=== PATIENT | female | born 1995 | race Caucasian/White ===

== ENCOUNTER 2017-08-24 10:03 | Emergency (ER) | payer OTHER, BC, SELFPAY ==
[2017-08-24 10:29] VITALS: BP 136/70; PULSE 84; RESP 20; TEMP 36.7; O2SAT 96; BMI 31.0
--- NOTE | 2017-08-24 10:32 | HMH.EDUTC ---
[facility] [place] Disposition Clinical Impression: UTI (urinary tract infection) Qualifiers: Urinary tract infection type: site unspecified Hematuria presence: without hematuria Qualified Code(s): N39.0 - Urinary tract infection, site not specified Disposition: Home, Self-Care Condition on Discharge: Good Instructions: DI for Acute Abdomen Additional Instructions: Increase fluids, antibiotics as ordered Call back on Saturday for urine culture results Follow-up with primary care this week if no improvement If symptoms worsen or do not improve return or be seen in the ER Prescriptions: cephALEXin [Keflex 500mg Cap] 500 mg PO BID 7 Days cap Referrals: Daryn Willingham [Primary Care Provider] - Time of Disposition: 10:39 Medical Decision Making Vital Signs: 08/24/17 10:29 Temperature 98.1 F Temperature Source Temporal Artery Scan Pulse Rate [Right Brachial] 84 Respiratory Rate 20 Blood Pressure [Right Arm] 136/70 Blood Pressure Mean [Right Arm] 92 Blood Pressure Source [Right Arm] Automatic Cuff Blood Pressure Position [Right Arm] Sitting 02 Sat by Pulse Oximetry 96 Oxygen Delivery Method Room Air Orders (Tests/Meds): ORDERS Category Date Time Status Urine Culture Stat Micro 08/24/17 10:30 Ordered - Bautista Inquiry Pt receiving controlled substance: No [facility] [place] HPI - General Chief complaint: Abdominal Pain Stated complaint: Possible UTI Time Seen by Provider: 08/24/17 10:32 Mode of Arrival: Ambulatory Source of Information: Patient Limitations: No Limitations Description of Symptoms (Recalled from Triage Doc. by RN): POSSIBLE UTI HEENT Symptoms (Recalled from RN notes): No Resp Symptoms (Recalled from RN notes): No Skin Symptoms (Recalled from RN notes): No MS Symptoms (Recalled from RN notes): No Functional Status (Recalled from RN notes): N/A - History of Present Illness Provider Complaint: 22-year-old female presents for burning with urination, low back pain, frequent urination, pain after urination. hx of uti - Related Data Previous Rx's Medication Instructions Recorded cephALEXin [Keflex 500mg Cap] 500 mg PO BID 7 Days cap 08/24/17 Allergies Allergy/AdvReac Type Severity Reaction Status Date / Time No Known Allergies Allergy Verified 08/24/17 10:18 - Worker's Comp Is this a Worker's Comp case?: No [facility] History I have reviewed the patient's past medical history: Yes Medical History: Denies:: Cancer, Diabetes Mellitus Type 1, Diabetes Mellitus Type 2, MRSA Amputation: No - Social History Smoking Status: Never smoker Alcohol Intake: never - Psychiatric History Expresses thoughts of harming self/others: None Suicide Plan Description: No Plan ROS Obtained: Yes All systems reviewed & no additional complaints - Constitutional Constitutional: Reports system reviewed and no additional complaints, except as docu - Eyes Eyes: Reports system reviewed and no additional complaints, except as docu - ENT Ears, Nose, Mouth, and Throat: Reports system reviewed and no additional complaints, except as docu - Cardiovascular Cardiovascular: Reports system reviewed and no additional complaints, except as docu - Respiratory Respiratory: Yes system reviewed and no additional complaints, except as docu - Gastrointestinal Gastrointestingal: Reports: system reviewed and no additional complaints, except as docu - Genitourinary Female Genitourinary: Reports system reviewed and no additional complaints, except as docu, Reports pelvic pain, Reports urinary frequency, Reports urinary hesitancy, Reports urinary urgency - Musculoskeletal Musculoskeletal: Reports system reviewed and no additional complaints, except as docu - Integumentary/Breasts Skin/Breast: Reports system reviewed and no additional complaints, except as docu - Neurologic Neurologic: Reports system reviewed and no additional complaints, except as docu - Endocrine Endocrine: Reports system reviewed and no additiona
--- NOTE | 2017-08-24 10:35 | ED_ITS ---
[facility] [place] Disposition Clinical Impression: UTI (urinary tract infection) Qualifiers: Urinary tract infection type: site unspecified Hematuria presence: without hematuria Qualified Code(s): N39.0 - Urinary tract infection, site not specified Disposition: Home, Self-Care Condition on Discharge: Good Instructions: DI for Acute Abdomen Additional Instructions: Increase fluids, antibiotics as ordered Call back on Saturday for urine culture results Follow-up with primary care this week if no improvement If symptoms worsen or do not improve return or be seen in the ER Prescriptions: cephALEXin [Keflex 500mg Cap] 500 mg PO BID 7 Days cap Referrals: Daryn Willingham [Primary Care Provider] - Time of Disposition: 10:39 Medical Decision Making Vital Signs: 08/24/17 10:29 Temperature 98.1 F Temperature Source Temporal Artery Scan Pulse Rate [Right Brachial] 84 Respiratory Rate 20 Blood Pressure [Right Arm] 136/70 Blood Pressure Mean [Right Arm] 92 Blood Pressure Source [Right Arm] Automatic Cuff Blood Pressure Position [Right Arm] Sitting 02 Sat by Pulse Oximetry 96 Oxygen Delivery Method Room Air Orders (Tests/Meds): ORDERS Category Date Time Status Urine Culture Stat Micro 08/24/17 10:30 Ordered - Bautista Inquiry Pt receiving controlled substance: No [facility] [place] HPI - General Chief complaint: Abdominal Pain Stated complaint: Possible UTI Time Seen by Provider: 08/24/17 10:32 Mode of Arrival: Ambulatory Source of Information: Patient Limitations: No Limitations Description of Symptoms (Recalled from Triage Doc. by RN): POSSIBLE UTI HEENT Symptoms (Recalled from RN notes): No Resp Symptoms (Recalled from RN notes): No Skin Symptoms (Recalled from RN notes): No MS Symptoms (Recalled from RN notes): No Functional Status (Recalled from RN notes): N/A - History of Present Illness Provider Complaint: 22-year-old female presents for burning with urination, low back pain, frequent urination, pain after urination. hx of uti - Related Data Previous Rx's Medication Instructions Recorded cephALEXin [Keflex 500mg Cap] 500 mg PO BID 7 Days cap 08/24/17 Allergies Allergy/AdvReac Type Severity Reaction Status Date / Time No Known Allergies Allergy Verified 08/24/17 10:18 - Worker's Comp Is this a Worker's Comp case?: No [facility] History I have reviewed the patient's past medical history: Yes Medical History: Denies:: Cancer, Diabetes Mellitus Type 1, Diabetes Mellitus Type 2, MRSA Amputation: No - Social History Smoking Status: Never smoker Alcohol Intake: never - Psychiatric History Expresses thoughts of harming self/others: None Suicide Plan Description: No Plan ROS Obtained: Yes All systems reviewed & no additional complaints - Constitutional Constitutional: Reports system reviewed and no additional complaints, except as docu - Eyes Eyes: Reports system reviewed and no additional complaints, except as docu - ENT Ears, Nose, Mouth, and Throat: Reports system reviewed and no additional complaints, except as docu - Cardiovascular Cardiovascular: Reports system reviewed and no additional complaints, except as docu - Respiratory Respiratory: Yes system reviewed and no additional complaints, except as docu - Gastrointestinal Gastrointestin
[2017-08-24 10:44] VITALS: BP 136/70; PULSE 84; RESP 20; TEMP 36.7; O2SAT 96
[2017-08-24 11:15] LABS: Apearance,Urine Clear (Clear); Bilirubin,Urine Negative (Negative); Blood, Urine Negative (Negative); Color,Urine Yellow (Yellow); Glucose,Urine (UA) Negative (Negative); Ketones,Urine Negative (Negative); PH,Urine 7.5 (5.0-8.5); Protein,Urine Negative (Negative); Specific Gravity, Urine 1.015 (1.005-1.030)
[2017-08-24 11:16] LABS: UTC Leukocyte Esterase,Urine 1+ (Negative); UTC Nitrate,Urine Negative (Negative); Urobilinogen,Urine 0.2 EU/dl (0.2)
== END 2017-08-24 10:45 | disposition home or self-care (01) ==
PROVIDERS: Emergency Provider Nurse Practitioner Family; Family Provider Internal Medicine; PCP Internal Medicine
DX: N39.0 Urinary tract infection, site not specified (principal)
CPT/HCPCS: 81003; 87086; 99202

== ENCOUNTER → 2017-09-17 13:35 | Outpatient (CLI) | payer OTHER, BC, SELFPAY ==
--- NOTE | 2017-09-17 14:06 | CA_ITS ---
PROCEDURE: 2-D M-mode and color Doppler study INDICATIONS FOR THE TEST: Chest pain COPD Heart Murmur Tobacco Smoking Palpitations Fatigue Syncope Edema Hypertension Diabetes Mellitus Rheumatic Fever SOB LAURA Obesity Hyperlipidemia Family History HD Additional History BAV PATIENT INFORMATION HEIGHT: 67 WEIGHT:197 GENDER: Female B/P:120/70 2-D/M-MODE INTERPRETATION: 2-D MEASUREMENTS OBSERVED VALUES IN CMS Right Ventricular Dimension (RVDd) 1.6 Interventricular Septum (Thickness)(IVsd) 0.8 Left Ventricular Internal Dimensions(LVIDd) 4.3 Left Ventricular Posterior Wall (Thickness)(LVPWd) 0.9 Aortic Root 2.4 Aortic Cusp Separation 1.5 Left Atrial Dimensions (LAD) 3.1 2D 1. Left atrium is normal size, left ventricle is normal size, there is no concentric left ventricular hypertrophy, visually estimated ejection fraction 55% with no obvious regional wall motion abnormality. 2. The right atrium and right ventricle are normal size and contractility. 3. The aortic valve is bicuspid, there is mild restriction the leaflet mobility, aortic root is normal size. 4. The mitral and tricuspid valve are structurally normal 5. The pulmonic valve is poorly visualized 6. No significant pericardial effusion noted. DOPPLER INTERROGATION: 1. The maximum aortic out flow velocity across the valve is 2.75 m/s resulting in a mean gradient across valve of 15 mmHg, this represents mild aortic stenosis, there is mild aortic insufficiency present. 2. The mitral inflow velocity within normal range, there is no mitral stenosis, there is mild mitral regurgitation, diastolic parameters are within normal range. 3. There is mild tricuspid regurgitation noted, tricuspid regurgitant jet velocity insufficient for calculation of the right ventricular systolic pressure. CONCLUSION: 1. Normal left ventricular size, preserved left ventricular systolic function, visually estimated ejection fraction 55% with no obvious regional wall motion abnormality. Diastolic parameters are within normal range. 2. Bicuspid aortic valve with mild aortic stenosis and mild aortic insufficiency. 3. Mild mitral and tricuspid regurgitation 4. No significant pericardial effusion noted.
== END ==
PROVIDERS: Family Provider Internal Medicine; PCP Internal Medicine; Visit Provider Internal Medicine
DX: R51 Headache (principal); H53.9 Unspecified visual disturbance; I35.0 Nonrheumatic aortic (valve) stenosis; R00.2 Palpitations; Q23.1 Congenital insufficiency of aortic valve
CPT/HCPCS: 93306

== ENCOUNTER → 2017-09-20 13:33 | Outpatient (CLI) | payer OTHER, BC, SELFPAY ==
[2017-09-20 14:15] LABS: Alanine Aminotransferase 19 U/L (12-78); Albumin Level 3.8 gm/dL (3.4-5.0); Alkaline Phosphatase 99 U/L (46-116); Anion Gap 9.6 mEq/L (5-15); Aspartate Amino Transferase 10 U/L (15-37); Bilirubin,Total 0.5 mg/dL (0.2-1.0); Blood Urea Nitrogen 7 mg/dL (7-18); Calcium 8.8 mg/dL (8.5-10.1); Carbon Dioxide 28 mmol/L (21.0-32.0); Chloride 105 mmol/L (98-107); Creatinine,Serum 0.64 mg/dL (0.55-1.02); Estimated Glomerular Filt Rate 116 ml/min (>60); GFR (African American) 140 ML/MIN (>60); Globulin 3.7 gm/dl (1.3-3.2); Glucose 83 mg/dL (74-106); Potassium 3.6 mmoL/L (3.5-5.1); Sodium 139 mmol/L (136-145); Thyroid Stimulating Hormone 3.12 uIU/ml (0.358-3.740); Total Protein,Serum 7.5 gm/dL (6.4-8.2)
[2017-09-20 14:34] LABS: Basophils % 0.3 % (0.1-2.0); Eosinophils % 0.3 % (0.1-12.0); Hematocrit 47.2 % (37.0-47.0); Hemoglobin 15.9 g/dL (12.2-16.2); Lymphocytes # 2.7 K/mm3 (0.7-4.5); Lymphocytes % 27.9 K/mm3 (10-50); Mean Corpuscular HGB Conc 33.7 g/dL (31.8-35.4); Mean Corpuscular Hemoglobin 29.8 pg (27.0-31.2); Mean Corpuscular Volume 88.5 fl (81-99); Monocytes # 0.4 K/mm3 (0.1-1.0); Monocytes % 4.1 % (1.7-9.3); Neutrophils # 6.6 K/mm3 (1.8-7.8); Neutrophils % 67.4 % (37.0-80.0); Platelet Count 272 K/mm3 (142-424); Red Blood Count 5.33 M/mm3 (4.20-5.40); Red Cell Distribution Width 12.3 % (11.5-17.5); White Blood Count 9.7 K/mm3 (4.8-10.8)
[2017-09-21 18:38] LABS: Vitamin B12 277 pg/mL (232-1245); Vitamin D 25 Hydroxy 28.6 ng/mL (30.0-100.0)
== END ==
PROVIDERS: Family Provider Internal Medicine; PCP Internal Medicine; Visit Provider Nurse Practitioner Family
DX: R51 Headache (principal); H53.9 Unspecified visual disturbance; Q23.1 Congenital insufficiency of aortic valve
CPT/HCPCS: 36415; 80053; 82607; 82652; 84443; 85025

== ENCOUNTER → 2017-09-23 08:01 | Outpatient (POV) | payer OTHER, BC, SELFPAY | PROVIDERS: Family Provider Internal Medicine; PCP Internal Medicine; Visit Provider Specialist | DX: R51 Headache (principal); H53.9 Unspecified visual disturbance; Q23.1 Congenital insufficiency of aortic valve | CPT/HCPCS: 95819 ==

== ENCOUNTER → 2017-09-23 09:01 | Outpatient (CLI) | payer OTHER, BC, SELFPAY ==
[2017-09-23 09:03] LABS: Urine Pregnancy, HCG Qual. Negative (Negative)
--- NOTE | 2017-09-23 09:05 | MR_ITS ---
MR head/brain wo/w con HISTORY: Severe headache with blurred vision ITS.REASON: headache ORDERING PHYSICIAN: Tito Vance PATIENT AGE: 22 years COMPARISON: None TECHNIQUE: Standard multiplanar multiecho sequences are performed without and with gadolinium enhancement. FINDINGS: No midline shift, mass effect, intracranial hemorrhage, hydrocephalus, acute infarction, or enhancing lesion is evident. The cerebellopontine angles, cerebellum, and brainstem are unremarkable. Hippocampal gyri have an unremarkable appearance and the temporal horns are symmetric. There is normal tian-white matter differentiation with no obvious white matter lesions. There is some minimal cerebellar tonsillar ectopia on the right of approximately 4 mm of questionable clinical significance. The pituitary, optic chiasm, and corpus callosum have an unremarkable appearance. Left petrous bone having a somewhat multilocular appearance and may be related to inflammatory changes within a pneumatized petrous bone or an incidental cholesterol granuloma. Expected flow void artifact is noted within the carotids and vertebrobasilar system. No large aneurysms are evident. Small aneurysms may not be seen with this technique and may be better evaluated for with MRA clinically warranted. There is a small posterior ethmoid air cell opacification on the right. No mastoid effusion or sinus air-fluid level. IMPRESSION: 1. No acute intracranial abnormality. 2. Inflammatory changes of pneumotomized left petrous bone versus incidental cholesterol granuloma on the left 3. 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
== END ==
PROVIDERS: Family Provider Internal Medicine; PCP Internal Medicine; Visit Provider Nurse Practitioner Family
DX: R51 Headache (principal); H53.9 Unspecified visual disturbance; Q23.1 Congenital insufficiency of aortic valve; R00.2 Palpitations
CPT/HCPCS: 70553; 81025; 93225; 93226; A9576

== ENCOUNTER → 2018-09-23 12:48 | Outpatient (CLI) | payer OTHER, BC, SELFPAY ==
--- NOTE | 2018-09-23 12:51 | CA_ITS ---
PROCEDURE: 2-D M-mode and color Doppler study INDICATIONS FOR THE TEST: Chest pain COPD Heart Murmur+ Tobacco Smoking Palpitations Fatigue Syncope Edema Hypertension Diabetes Mellitus Rheumatic Fever SOB LAURA Obesity Hyperlipidemia Family History HD Additional History PATIENT INFORMATION HEIGHT: 67 WEIGHT:178 GENDER: Female B/P:144/86 2-D/M-MODE INTERPRETATION: 2-D MEASUREMENTS OBSERVED VALUES IN CMS Right Ventricular Dimension (RVDd) 1.7 Interventricular Septum (Thickness)(IVsd) 1.1 Left Ventricular Internal Dimensions(LVIDd) 4.5 Left Ventricular Posterior Wall (Thickness)(LVPWd) 0.7 Aortic Root 2.7 Aortic Cusp Separation 1.9 Left Atrial Dimensions (LAD) 3.0 2D 1. Left atrium is normal size, left ventricle is normal size, there is no concentric left ventricular hypertrophy, visually estimated ejection fraction 55% with no regional wall motion abnormality. 2. The right atrium and right ventricle are normal size and contractility. 3. The aortic valve morphology is not well visualized, it is thickened and calcified. Possibility of bicuspid aortic valve cannot be excluded, if clinically indicated transesophageal echocardiogram is recommended. 4. The mitral and tricuspid valvular grossly normal. 5. The pulmonic valve is poorly visualized. 6. No significant pericardial effusion noted. DOPPLER INTERROGATION: 1. The maximum aortic out flow velocity recorded study is 2.7 m/s, resulting in a mean gradient across valve of 13 mmHg, this represents mild aortic stenosis, there is mild aortic insufficiency present. 2. The mitral inflow velocity within normal range, there is no mitral stenosis, there is mild mitral regurgitation, diastolic parameters are within normal range. 3. There is mild tricuspid regurgitation noted, tricuspid regurgitation jet velocity is inadequate for calculation of the right ventricular systolic pressure. CONCLUSION: 1. Normal left ventricular size, preserved left ventricular systolic function, visually estimated ejection fraction 55% with no regional wall motion abnormality, diastolic parameters are within normal range. 2. Thickened and calcified aortic valve with mean gradient across valve of 13 mmHg represents mild aortic stenosis, there is mild aortic insufficiency, morphology of the aortic valve is not well visualized, possibility of bicuspid aortic valve cannot be excluded, if clinically indicated transesophageal echocardiogram is recommended. 3. Mild mitral and tricuspid regurgitation 4. No significant pericardial effusion noted.
== END ==
PROVIDERS: PCP Internal Medicine; Visit Provider Urology
DX: I35.0 Nonrheumatic aortic (valve) stenosis (principal); Q23.1 Congenital insufficiency of aortic valve; R01.1 Cardiac murmur, unspecified
CPT/HCPCS: 93306

== ENCOUNTER 2018-11-26 19:59 | Emergency (ER) | payer OTHER, BC, SELFPAY ==
[2018-11-26 20:17] VITALS: BP 150/79; PULSE 79; RESP 20; TEMP 36.7; O2SAT 100; BMI 26.9
--- NOTE | 2018-11-26 20:18 | HMH.EDUTC ---
[facility] [place] Clinical Impression: UTI (urinary tract infection) Qualifiers: Urinary tract infection type: site unspecified Hematuria presence: with hematuria Qualified Code(s): N39.0 - Urinary tract infection, site not specified Disposition: Home, Self-Care Condition on Discharge: Good Instructions: Urinary Tract Infection, DI for Urinary Tract Infection (UTI) Additional Instructions: Drink plenty of fluids. Drink cranberry juice too. Take tylenol or ibuprofen for pain or fever Take all the antibiotics as prescribed. The pyridium will make your urine turn orange. That is an expected side effect. It will stain your clothes if it comes into contact with them. Follow up with your regular doctor or return if you're not getting some better in 48 hours. GO TO THE ER FOR ANY WORSENING OR LIFE THREATENING SYMPTOMS Prescriptions: Sulfamethoxazole/Trimethoprim [Bactrim DS tablet] 1 each PO BID 7 Days #14 tab Phenazopyridine HCl [Pyridium 200mg Tablet] 200 pow PO TID #6 tab Referrals: Daryn Willingham [Primary Care Provider] - Forms: Work/School Release Time of Disposition: 20:27 Medical Decision Making - Medical Records Medical records reviewed: Yes: I reviewed the patient's medical records. - Bautista Inquiry Pt receiving controlled substance: No Bautista was queried for this patient: No Vital Signs: 11/26/18 20:17 11/26/18 20:29 Temperature 98.1 F 98.1 F Temperature Source Oral Oral Pulse Rate 79 Pulse Rate [Right Brachial] 79 Respiratory Rate 20 20 Blood Pressure 150/79 H Blood Pressure [Right Arm] 150/79 H Blood Pressure Mean [Right Arm] 102 Blood Pressure Source Automatic Cuff Blood Pressure Source [Right Arm] Automatic Cuff Blood Pressure Position Sitting Blood Pressure Position [Right Arm] Sitting 02 Sat by Pulse Oximetry 100 Oxygen Delivery Method Room Air Room Air - Lab Data Lab results reviewed: Yes: I reviewed the patient's lab results. Lab Results 11/26/18 20:20: Urine Color Yellow, Urine Appearance Clear, Urine pH 6.0, Ur Specific [place] 1.005, Urine Protein Negative, Urine Glucose (UA) Negative, Urine Ketones Negative, Urine Blood 1+, Urine Nitrate Negative, Urine Bilirubin Negative, Urine Urobilinogen 0.2, Ur Leukocyte Esterase 1+ A 11/26/18 20:20: [facility] Negative Orders (Tests/Meds): ORDERS Category Date Time Status Urine Culture Stat Micro 11/26/18 20:57 Received [facility] [place]PI - General Stated complaint: Possbile UTI Time Seen by Provider: 11/26/18 20:19 - History of Present Illness Provider Complaint: She c/o burning with urination, feeling bad and low back pain since yesterday. - Related Data Home Medications Medication Instructions Recorded Confirmed norgestimate-ethinyl estradiol 1 tab PO DAILY tab 09/09/17 09/09/18 0.18 mg/0.215mg/0.25mg-35 mcg(28)tablet fexofenadine 180 mg tablet 180 mg PO DAILY 09/09/18 09/09/18 montelukast 10 mg tablet 10 mg PO QPM 09/09/18 09/09/18 topiramate 50 mg tablet 75 mg PO DAILY tab 09/09/18 09/09/18 Previous Rx's Medication Instructions Recorded Phenazopyridine HCl [Pyridium 200 pow PO TID #6 tab 11/26/18 200mg Tablet] Sulfamethoxazole/Trimethoprim 1 each PO BID 7 Days #14 tab 11/26/18 [Bactrim DS tablet] Allergies Allergy/AdvReac Type Severity Reaction Status Date / Time No Known Allergies Allergy Verified 09/09/18 13:44 [facility] History - Hepatitis A Screen Attestation statement:: This patient has been screened for Hepatitis A risk factors. I have reviewed the patient's past medical history: Yes Medical History: Reports:: Migraine, Palpitations Denies:: Cancer, Diabetes Mellitus Type 1, Diabetes Mellitus Type 2, MRSA Other Surgeries: Yes: No Previous Surgery, Cardiac Surgery, Other Amputation: No Comment: oral, gallbladder - Social History Smoking Status: Never smoker Alcohol Intake: never Alcohol Intake Frequency:: other Substance Use Type: d
[2018-11-26 20:22] LABS: UTC Pregnancy Test, Urine Negative (Negative)
[2018-11-26 20:23] LABS: Apearance,Urine Clear (Clear); Color,Urine Yellow (Yellow); Glucose,Urine (UA) Negative (Negative); Ketones,Urine Negative (Negative); Protein,Urine Negative (Negative); Specific Gravity, Urine 1.005 (1.005-1.030)
[2018-11-26 20:24] LABS: Bilirubin,Urine Negative (Negative); Blood, Urine 1+ (Negative); Urobilinogen,Urine 0.2 EU/dl (0.2)
[2018-11-26 20:25] LABS: UTC Leukocyte Esterase,Urine 1+ (Negative); UTC Nitrate,Urine Negative (Negative)
--- NOTE | 2018-11-26 20:25 | ED_ITS ---
[facility] [place] [facility] [place] Clinical Impression: UTI (urinary tract infection) Qualifiers: Urinary tract infection type: site unspecified Hematuria presence: with hematuria Qualified Code(s): N39.0 - Urinary tract infection, site not specified Disposition: Home, Self-Care Condition on Discharge: Good Instructions: Urinary Tract Infection, DI for Urinary Tract Infection (UTI) Additional Instructions: Drink plenty of fluids. Drink cranberry juice too. Take tylenol or ibuprofen for pain or fever Take all the antibiotics as prescribed. The pyridium will make your urine turn orange. That is an expected side effect. It will stain your clothes if it comes into contact with them. Follow up with your regular doctor or return if you're not getting some better i n 48 hours. GO TO THE ER FOR ANY WORSENING OR LIFE THREATENING SYMPTOMS Prescriptions: Sulfamethoxazole/Trimethoprim [Bactrim DS tablet] 1 each PO BID 7 Days #14 tab Phenazopyridine HCl [Pyridium 200mg Tablet] 200 pow PO TID #6 tab Referrals: Daryn Willingham [Primary Care Provider] - Forms: Work/School Release Time of Disposition: 20:27 Medical Decision Making - Medical Records Medical records reviewed: Yes: I reviewed the patient's medical records. - Bautista Inquiry Pt receiving controlled substance: No Bautista was queried for this patient: No Vital Signs: 11/26/18 20:17 11/26/18 20:29 Temperature 98.1 F 98.1 F Temperature Source Oral Oral Pulse Rate 79 Pulse Rate [Right Brachial] 79 Respiratory Rate 20 20 Blood Pressure 150/79 H Blood Pressure [Right Arm] 150/79 H Blood Pressure Mean [Right Arm] 102 Blood Pressure Source Automatic Cuff Blood Pressure Source [Right Arm] Automatic Cuff Blood Pressure Position Sitting Blood Pressure Position [Right Arm] Sitting 02 Sat by Pulse Oximetry 100 Oxygen Delivery Method Room Air Room Air - Lab Data Lab results reviewed: Yes: I reviewed the patient's lab results. Lab Results 11/26/18 20:20: Urine Color Yellow, Urine Appearance Clear, Urine pH 6.0, Ur Specific [place] 1.005, Urine Protein Negative, Urine Glucose (UA) Negative, Urine Ketones Negative, Urine Blood 1+, Urine Nitrate Negative, Urine Bilirubin Negative, Urine Urobilinogen 0.2, Ur Leukocyte Esterase 1+ A 11/26/18 20:20: [facility] Clinic Negative Orders (Tests/Meds): ORDERS Category Date Time Status Urine Culture Stat Micro 11/26/18 20:57 Received [facility] [place] [facility] [place]PI - General Stated complaint: Possbile UTI Time Seen by Provider: 11/26/18 20:19 - History of Present Illness Provider Complaint: She c/o burning with urination, feeling bad and low back pain since yesterday. - Related Data Home Medications Medication Instructions Recorded Confirmed norgestimate-ethinyl estradiol 1 tab PO DAILY tab 09/09/17 09/09/18 0.18 mg/0.215mg/0.25mg-35 mcg(28)tablet fexofenadine 180 mg tablet 180 mg PO DAILY 09/09/18 09/09/18 montelukast 10 mg tablet 10 mg PO QPM 09/09/18 09/09/18 topiramate 50 mg tablet 75 mg PO DAILY tab 09/09/18 09/09/18 Previous Rx's Medication Instructions Recorded Phenazopyridine HCl [Pyridium 200 pow
[2018-11-26 20:29] VITALS: BP 150/79; PULSE 79; RESP 20; TEMP 36.7; O2SAT 100
== END 2018-11-26 20:36 | disposition home or self-care (01) ==
PROVIDERS: Emergency Provider Nurse Practitioner Family; PCP Internal Medicine
DX: N39.0 Urinary tract infection, site not specified (principal)
CPT/HCPCS: 81003; 81025; 87086; 87088; 87186; 99201

== ENCOUNTER → 2019-02-04 13:11 | Outpatient (CLI) | payer OTHER, BC, SELFPAY | PROVIDERS: PCP Internal Medicine; Visit Provider Obstetrics & Gynecology | DX: Z32.01 Encounter for pregnancy test, result positive (principal) | CPT/HCPCS: 84702 ==

== ENCOUNTER 2019-03-25 09:30 | Outpatient (RCR) | payer OTHER, BC, SELFPAY | END 2019-04-16 15:00 | disposition home or self-care (01) | LOC: PT.CARL 09:30 | PROVIDERS: PCP Internal Medicine; Visit Provider Internal Medicine | DX: M54.5 Low back pain (principal); M54.41 Lumbago with sciatica, right side | CPT/HCPCS: 97010; 97110; 97140; 97163 ==

== ENCOUNTER → 2019-09-14 15:14 | Outpatient (CLI) | payer OTHER, BC, SELFPAY | PROVIDERS: PCP Internal Medicine; Visit Provider Urology | DX: R01.1 Cardiac murmur, unspecified (principal); Q23.1 Congenital insufficiency of aortic valve | CPT/HCPCS: 93306 ==

== ENCOUNTER 2020-03-04 14:13 | Emergency (ER) | payer OTHER, BC, SELFPAY ==
[2020-03-04 14:14] VITALS: BP 131/82; PULSE 76; RESP 18; TEMP 36.7; O2SAT 98; BMI 31.9
--- NOTE | 2020-03-04 14:19 | PC.NURSE ---
EMPLOYEE ARRIVED TO ER WITH NEEDLE STICK , [employer]OP WORKER AWARE AND IS COMING DOWN
[2020-03-04 14:30] VITALS: BMI 31.9
--- NOTE | 2020-03-04 14:31 | HMH.EDGENADL ---
ED Disposition Clinical Impression: Needle stick injury of finger Disposition: Home, Self-Care Condition on Discharge: Good Referrals: Daryn Willingham [Primary Care Provider] - - Critical Care Critical Care Time: No Attestation: On , the high probability of a clinically significant, sudden or life threatening deterioration of the following system(s) required my full and direct attention, intervention and personal management. The time I documented below is in addition to time spent performing reported procedures but includes the following listed in this critical care notation. Medical Decision Making - Bautista Inquiry Pt receiving controlled substance: No Vital Signs: 03/04/20 14:14 Temperature 98.1 F Temperature Source Oral Pulse Rate [Left Radial] 76 Respiratory Rate 18 Blood Pressure [Right Arm] 131/82 Blood Pressure Mean [Right Arm] 98 Blood Pressure Position [Right Arm] Sitting 02 Sat by Pulse Oximetry 98 - Lab Data Lab Results 03/04/20 14:55: WBC 9.4, RBC 4.78, Hgb 14.7, Hct 41.2, MCV 86.0, MCH 30.7, MCHC 35.7 H, RDW 13.3, Plt Count 268, MPV 7.8, Neut % (Auto) 73.7, Lymph % (Auto) 21.8, Coleman % (Auto) 3.7, Eos % (Auto) 0.5, Baso % (Auto) 0.4, Neut # (Auto) 6.9, Lymph # (Auto) 2.0, Coleman # (Auto) 0.4, Eos # (Auto) 0.1, Baso # (Auto) 0.0 03/04/20 14:55: PT 10.4, INR 1.01, APTT 23.0 L 03/04/20 14:55: Total Bilirubin 0.4, Direct Bilirubin 0.0, Conjugated Bilirubin 0.0, Indirect Bilirubin 0.4, Unconjugated Bilirubin 0.4, AST 25, ALT 16, Alkaline Phosphatase 92, Total Protein 7.0, Albumin 4.0 Result diagrams: 03/04/20 14:55 Orders (Tests/Meds): ORDERS Category Date Time Status HBsAg Screen Stat Lab 03/04/20 14:55 Received HIV Panel [id number] Stat Lab 03/04/20 14:55 Received Hepatitis B Surf Ab Quant Stat Lab 03/04/20 14:55 Received Hepatitis C Antibody Stat Lab 03/04/20 14:55 Received Medical Decision Narrative: Patient seen here for accidental needlestick. Testing and prophylaxis will be per protocol at PCPs office. Rapid HIV testing was unavailable here today. She will check back on Saturday. 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 She is unsure of the patient's past medical history from which the needle was used. She is asymptomatic. - Related Data Home Medications Medication Instructions Recorded Confirmed fexofenadine 180 mg tablet 180 mg PO DAILY 09/09/18 09/08/19 montelukast 10 mg tablet 10 mg PO QPM 09/09/18 09/08/19 prenat.vits,ned,opf-fowk-pivaa 1 tab PO DAILY 09/08/19 09/08/19 Allergies Allergy/AdvReac Type Severity Reaction Status Date / Time No Known Allergies Allergy Verified 09/08/19 13:14 [facility] History - Hepatitis A Screen Attestation statement:: This patient has been screened for Hepatitis A risk factors. I have reviewed the patient's past medical history: Yes Medical History: Reports:: Migraine, Palpitations Denies:: Cancer, Diabetes Mellitus Type 1, Diabetes Mellitus Type 2, MRSA Other Surgeries: Yes: No Previous Surgery, Cardiac Surgery, Other Amputation: No Comment: oral, gallbladder - Social History Smoking Status: Never smoker Alcohol Intake: never Alcohol Intake Frequency:: other Substance Use Type: denies use Occupational Status: employed Housing: house Household Members: spouse Family Hx:: Hyperlipidemia, Hypertension ROS Obt
--- NOTE | 2020-03-04 14:50 | PC.NURSE ---
Rolando Trimble RN - Infection Control notified.
[2020-03-04 15:09] LABS: Basophils % 0.4 % (0.1-2.0); Eosinophils # 0.1 K/mm3 (0.0-0.4); Eosinophils % 0.5 % (0.1-12.0); Hematocrit 41.2 % (37.0-47.0); Hemoglobin 14.7 g/dL (12.2-16.2); Lymphocytes % 21.8 % (10-50); Mean Corpuscular HGB Conc 35.7 g/dL (31.8-35.4); Mean Corpuscular Hemoglobin 30.7 pg (27.0-31.2); Mean Platelet Volume 7.8 fl (7.4-10.4); Monocytes # 0.4 K/mm3 (0.1-1.0); Monocytes % 3.7 % (1.7-9.3); Neutrophils # 6.9 K/mm3 (1.8-7.8); Neutrophils % 73.7 % (37.0-80.0); Platelet Count 268 K/mm3 (142-424); Red Blood Count 4.78 M/mm3 (4.20-5.40); Red Cell Distribution Width 13.3 % (11.5-17.5); White Blood Count 9.4 K/mm3 (4.8-10.8)
[2020-03-04 15:14] LABS: Alanine Aminotransferase 16 U/L (12-78); Aspartate Amino Transferase 25 U/L (14-36); Bilirubin,Total 0.4 mg/dl (0.2-1.3); Bilirubin,Unconjugated 0.4 mg/dL (0.0-1.1)
[2020-03-04 15:15] LABS: Alkaline Phosphatase 92 U/L (38-126); Bilirubin,Indirect 0.4 mg/dL (0.0-0.9)
[2020-03-04 15:17] LABS: INR 1.01 (0.9-1.1); Prothrombin Time 10.4 seconds (9.4-11.8)
[2020-03-04 16:34] VITALS: BP 122/78; PULSE 63; RESP 20; TEMP 36.9; O2SAT 97
[2020-03-06 12:31] LABS: HIV Screen 4th Generation wRfx Non Reactive (Non Reactive)
[2020-03-06 15:24] LABS: Hepatitis B Surf Ab Quant 5.1 mIU/mL (Immunity>9.9); Hepatitis B Surface Antigen Negative (Negative); Hepatitis C Antibody <0.1 s/co ratio (0.0-0.9)
== END 2020-03-04 16:35 | disposition home or self-care (01) ==
PROVIDERS: Emergency Provider Physician Assistant; PCP Internal Medicine
DX: S61.231A Puncture wound without foreign body of left index finger without damage to nail, initial encounter (principal); W22.8XXA Striking against or struck by other objects, initial encounter; Y92.69 Other specified industrial and construction area as the place of occurrence of the external cause; Y99.0 Civilian activity done for income or pay
CPT/HCPCS: 80076; 85025; 85610; 85730; 86703; 86706; 87340; 87380; 99281; G0432

== ENCOUNTER 2020-04-04 19:46 | Emergency (ER) | payer OTHER, BC, SELFPAY ==
[2020-04-04 20:11] VITALS: BP 131/79; PULSE 75; RESP 16; TEMP 36.8; O2SAT 100; BMI 31.9
[2020-04-04 20:20] LABS: Apearance,Urine Clear (Clear); Color,Urine Yellow (Yellow)
[2020-04-04 20:21] LABS: Bilirubin,Urine Negative (Negative); Blood, Urine Negative (Negative); Glucose,Urine (UA) Negative (Negative); Ketones,Urine Negative (Negative); Protein,Urine Negative (Negative); UTC Leukocyte Esterase,Urine Negative (Negative); UTC Nitrate,Urine Negative (Negative); Urobilinogen,Urine 0.2 EU/dl (0.2)
--- NOTE | 2020-04-04 20:28 | HMH.EDUTC ---
[facility] [place]ression: Pleurisy Disposition: Home, Self-Care Condition on Discharge: Good Instructions: Pleurisy, DI for Pleurisy Additional Instructions: Follow up with your primary care physician. Take the medications as directed. GO TO THE ER FOR ANY WORSENING SYMPTOMS OR CONCERNS Prescriptions: methylPREDNISolone [Medrol] 4 mg PO DIRECTED 6 Days #21 tab.ds.pk Transmission Status: Received by [facility] #[id number] Azithromycin [Z-López 250mg Tab*] 250 mg PO UD DOSE PK #6 tab Transmission Status: Received by [facility] #[id number] Referrals: Daryn Willingham [Primary Care Provider] - Forms: Work/School Release Time of Disposition: 21:21 Medical Decision Making - Medical Records Medical records reviewed: No: I reviewed the patient's medical records. - Bautista Inquiry Pt receiving controlled substance: No Vital Signs: 04/04/20 20:11 04/04/20 21:23 Temperature 98.3 F 98.3 F Temperature Source Oral Pulse Rate 75 Pulse Rate [Right Brachial] 75 Respiratory Rate 16 16 Blood Pressure 131/79 Blood Pressure [Right Arm] 131/79 Blood Pressure Mean [Right Arm] 96 Blood Pressure Source [Right Arm] Automatic Cuff Blood Pressure Position [Right Arm] Sitting 02 Sat by Pulse Oximetry 100 Oxygen Delivery Method Room Air - Lab Data Lab Results 04/04/20 20:12: Urine Color Yellow, Urine Appearance Clear, Urine pH 7.0, Ur Specific [place] 1.010, Urine Protein Negative, Urine Glucose (UA) Negative, Urine Ketones Negative, Urine Blood Negative, Urine Nitrate Negative, Urine Bilirubin Negative, Urine Urobilinogen 0.2, Ur Leukocyte Esterase Negative Orders (Tests/Meds): ED MEDICATIONS Discontinued Medications Generic Name Dose Route Start Last Admin Trade Name Freq PRN Reason Stop Dose Admin Ketorolac Tromethamine 60 mg 04/04/20 21:16 04/04/20 21:19 Ketorolac 60mg/2ml Vial IM 04/04/20 21:17 60 mg ONCE ONE Administration Methylprednisolone Sodium Succinate 125 mg 04/04/20 21:16 04/04/20 21:19 Methylprednisolone Sod Succ 125mg Vial IM 04/04/20 21:17 125 mg ONCE ONE Administration - Radiology Data #1 Image(s): Chest Image Reviewed: Yes I reviewed the patient's radiology image, Yes I have reviewed radiologist's interpretation Preliminary Findings: Abnormal PROCEDURE: XR CHEST 2V CLINICAL HISTORY: RIB PAIN Left-sided chest pain, bicuspid aortic valve COMPARISON: No exams were available for comparison FINDINGS: The cardiomediastinal silhouette and pulmonary vascularity are within normal limits. No lobar consolidation or collapse. There is a faint opacity in the left upper lobe overlying the 2nd rib measuring 4 mm. Possibly related to summation artifact. Follow-up may confirm. No acute bony abnormalities. IMPRESSION: No acute finding. Dictated by: Braydon Bishop MD 04/05/2020 05:45 Braydon Bishop MD in [place] 04/05/2020 05:45 [facility] [place] - General Stated complaint: Pain in left rib area Time Seen by Provider: 04/04/20 20:29 Mode of Arrival: Ambulatory Source of Information: Patient Limitations: No Limitations Description of Symptoms (Recalled from Triage Doc. by RN): PATIENT C/O SHARP, STABBING PAIN TO LEFT RIB AREA THAT STARTED APPROX 1300 TODAY HEENT Symptoms (Recalled from RN notes): No Resp Symptoms (Recalled from RN notes): No Skin Symptoms (Recalled from RN notes): No MS Symptoms (Recalled from RN notes): Yes Functional Status (Recalled from RN notes): WNL - History of Present Illness Provider Complaint: She c/o left rib pain thats worse with deep breathing. She denies any recent coughing or other illness. She denies the possibility of having a pulled muscle. - Related Data Home Medications Medication Instructions Recorded Confirmed montelukast 10 mg tablet 10 mg PO QPM 09/09/18 04/04/20 Topiramate [Topamax] 75 mg PO HS 04/04/20 04/04/20 norethindrone ac-eth estradioL 1 each PO DAILY 04/04/20
--- NOTE | 2020-04-04 20:35 | XR_ITS ---
PROCEDURE: XR CHEST 2V CLINICAL HISTORY: RIB PAIN Left-sided chest pain, bicuspid aortic valve COMPARISON: No exams were available for comparison FINDINGS: The cardiomediastinal silhouette and pulmonary vascularity are within normal limits. No lobar consolidation or collapse. There is a faint opacity in the left upper lobe overlying the 2nd rib measuring 4 mm. Possibly related to summation artifact. Follow-up may confirm. No acute bony abnormalities. IMPRESSION: No acute finding. Questionable left upper lobe nodule. Stability may be confirmed with follow-up. Dictated by: Braydon Bishop MD 04/05/2020 05:45 Braydon Bishop MD in [place] 04/05/2020 05:45
[2020-04-04 21:23] VITALS: BP 131/79; PULSE 75; RESP 16; TEMP 36.8; O2SAT 100
== END 2020-04-04 21:25 | disposition home or self-care (01) ==
PROVIDERS: Emergency Provider Nurse Practitioner Family; PCP Internal Medicine
DX: R09.1 Pleurisy (principal); I35.0 Nonrheumatic aortic (valve) stenosis; Q23.1 Congenital insufficiency of aortic valve; G43.709 Chronic migraine without aura, not intractable, without status migrainosus; Z79.899 Other long term (current) drug therapy
CPT/HCPCS: 71046; 81003; 96372; 99202

== ENCOUNTER → 2020-05-31 15:57 | Outpatient (CLI) | payer OTHER, BC, SELFPAY ==
--- NOTE | 2020-05-31 16:07 | XR_ITS ---
PROCEDURE: XR CHEST 2V CLINICAL HISTORY: FOLLOW UP JARAD NODULE COMPARISON: CR XR CHEST 2V from 04/04/2020 FINDINGS: The cardiomediastinal silhouette and pulmonary vascularity are within normal limits. The lungs are clear without infiltrates, suspicious nodules, or pleural effusions. Previously noted nodular opacity in the left upper lobe no longer apparent No acute bony abnormalities. IMPRESSION: No acute findings. Dictated by: Braydon Bishop MD 05/31/2020 16:53 Braydon Bishop MD in [place] 05/31/2020 16:53
== END ==
PROVIDERS: PCP Internal Medicine; Visit Provider Internal Medicine
DX: R91.1 Solitary pulmonary nodule (principal)
CPT/HCPCS: 71046

== ENCOUNTER 2020-08-29 06:13 | Emergency (ER) | payer OTHER, BC, SELFPAY ==
[2020-08-29] VITALS (7 sets, daily range): BP systolic 112–129; BP diastolic 65–95; PULSE 62–81; RESP 16–18; TEMP 36.6; O2SAT 96–100; BMI 32.5
--- NOTE | 2020-08-29 06:33 | CT_ITS ---
PROCEDURE: CT ABDOMEN PELVIS W CON CLINICAL INDICATION: pain, acute Left upper quadrant pain COMPARISON: No exams were available for comparison TECHNIQUE: IV Contrast: 75ML Isovue 370 Oral Contrast None Axial images obtained with sagittal and coronal reformats. All CT scans at the facility use one or more dose reduction, viz: automated exposure control, ma/kV adjustment per patient size (including targeted exams where dose is matched to indication, i.e. head), or iterative reconstruction technique. FINDINGS: LOWER THORAX: No acute finding ABDOMEN & PELVIS: Prior cholecystectomy. The liver, adrenal glands, pancreas, and kidneys have an unremarkable appearance. There is decreased attenuation within the anterior and inferior aspect of the spleen inter region measuring approximately 2.8 cm. This could be due to a small splenic infarction or even a perfusion defect. Space-occupying lesion such as a hemangioma or lymphangioma is felt to be less likely. Follow-up suggested in 2-3 months with 3 phase imaging without and with contrast to confirm stability or resolution.. There is a mild amount of retained colonic feces. No intestinal obstruction or free air. No evidence of appendicitis or diverticulitis. No acute bony findings. No pelvic mass or abnormal fluid collection. IMPRESSION: 1. There is a small perfusion defect within the inferior and anterior aspect of the spleen. This could be due to a perfusion defect from differential perfusion or splenic infarct. Hemangioma or lymphangioma included in the differential diagnosis but felt to be less likely. Consider 2-3 month follow-up with dynamic post enhanced imaging without and with contrast. 2. Mild amount of retained colonic feces Dictated by: Braydon Bishop MD 08/29/2020 08:39 Braydon Bishop MD in [place] 08/29/2020 08:39
--- NOTE | 2020-08-29 06:33 | HMH.EDGENADL ---
ED Disposition Clinical Impression: Left upper quadrant abdominal pain Disposition: Still a Patient Condition on Discharge: Fair Instructions: DI for Acute Abdominal Pain Referrals: Daryn Willingham [Primary Care Provider] - - Critical Care Critical Care Time: No Attestation: On , the high probability of a clinically significant, sudden or life threatening deterioration of the following system(s) required my full and direct attention, intervention and personal management. The time I documented below is in addition to time spent performing reported procedures but includes the following listed in this critical care notation. Medical Decision Making - Medical Records Medical records reviewed: Yes: I reviewed the patient's medical records. - Bautista Inquiry Pt receiving controlled substance: No Vital Signs: 08/29/20 06:25 08/29/20 07:35 Temperature 97.8 F Temperature Source Oral Pulse Rate [Right Brachial] 71 81 Respiratory Rate 17 17 Blood Pressure [Right Arm] 129/88 115/65 Blood Pressure Mean [Right Arm] 101 81 Blood Pressure Source [Right Arm] Automatic Cuff Automatic Cuff Blood Pressure Position [Right Arm] Sitting Sitting 02 Sat by Pulse Oximetry 100 98 Oxygen Delivery Method Room Air Room Air - Lab Data Lab Results 08/29/20 06:30: Urine HCG, Qual Negative 08/29/20 06:30: Urine Color Yellow, Urine Appearance Clear, Urine pH 7.0, Ur Specific [place] 1.010, Urine Protein Negative, Urine Glucose (UA) Negative, Urine Ketones Negative, Urine Blood Negative, Urine Nitrate Negative, Urine Bilirubin Negative, Urine Urobilinogen 0.2, Ur Leukocyte Esterase Negative, Urine WBC Occasional, Ur Squamous Epith Cells Occasional 08/29/20 06:40: WBC 9.1, RBC 4.98, Hgb 14.8, Hct 44.0, MCV 88.2, MCH 29.7, MCHC 33.6, RDW 12.5, Plt Count 260, MPV 7.5, Neut % (Auto) 62.9, Lymph % (Auto) 30.4, [place]ack[place] % (Auto) 5.2, Eos % (Auto) 0.9, Baso % (Auto) 0.5, Neut # (Auto) 5.7, Lymph # (Auto) 2.8, [place]ack[place] # (Auto) 0.5, Eos # (Auto) 0.1, Baso # (Auto) 0.1 08/29/20 06:40: Sodium 139, Potassium 3.6, Chloride 111 H, Carbon Dioxide 20 L, Anion Gap 11.6, BUN 10, Creatinine 0.70, Estimated Creat Clear 183, Estimated GFR 102, Est GFR ( Amer) 123, Glucose 100, Calcium 9.4, Total Bilirubin 0.4, AST 20, ALT 16, Alkaline Phosphatase 111, Total Protein 7.5, Albumin 4.3, Globulin 3.2, Albumin/Globulin Ratio 1.3, Lipase 90 Result diagrams: 08/29/20 06:40 08/29/20 06:40 Orders (Tests/Meds): ED MEDICATIONS Discontinued Medications Generic Name Dose Route Start Last Admin Trade Name Freq PRN Reason Stop Dose Admin Iopamidol 75 ml 08/29/20 07:27 08/29/20 07:27 Iopamidol-370 (76%);100ml Bottle IV 08/29/20 07:28 75 ml ONCE ONE Administration Sodium Chloride 10 ml 08/29/20 07:27 08/29/20 07:27 Sodium Chloride 0.9% 10ml Syr (Rad Only) IV 08/29/20 07:28 10 ml ONCE ONE Administration ORDERS Category Date Time Status CT abdomen pelvis w con Stat Cat Scan 08/29/20 06:33 Taken US abdomen limited Stat Exams 08/29/20 07:51 Ordered PT/PTT Stat Lab 08/29/20 07:30 Received 12-lead EKG Request [ECG Request by /[place]] Stat Y 08/29/20 07:43 Ordered EKG Request [ECG Request by /[place]] Stat Y 08/29/20 07:41 Ordered Medical Decision Narrative: In summary this is a 25-year-old female presenting to the emergency department with left-sided abdominal pain. Patient is clinically stable on arrival. Vital signs within normal limits. Differential diagnoses for left-sided abdominal/ flank pain include pyelonephritis, nephrolithiasis, constipation. Will obtain CBC, CMP, lipase, urinalysis, test, CT scan of the abdomen and pelvis with IV contrast. Initial laboratory results are reassuring. No urinary tract infection. No red blood cells in the urine to suggest nephrolithiasis. negative. Renal function adequate. No leukocytosis. CT scan of the abdomen and pelvis shows moderate stool burden. Diverticulosis
[2020-08-29 06:44] LABS: Microscopic, Urine URINE MICROSCOPIC (MICROSCOPIC)
[2020-08-29 06:48] LABS: Appearance,Urine CLEAR (Clear); Bilirubin,Urine Negative (Negative); Blood, Urine Negative (Negative); Color,Urine YELLOW (Yellow); Glucose,Urine (UA) Negative (Negative); Ketones,Urine Negative (Negative); Leukocyte Esterase,Urine Negative (Negative); Nitrate,Urine Negative (Negative); Protein,Urine Negative (Negative); Urobilinogen,Urine 0.2 EU/dl (0.2)
[2020-08-29 06:50] LABS: Urine Pregnancy, HCG Qual. Negative (Negative)
[2020-08-29 06:52] LABS: Basophils # 0.1 K/mm3 (0-0.2); Basophils % 0.5 % (0.1-2.0); Eosinophils # 0.1 K/mm3 (0.0-0.4); Eosinophils % 0.9 % (0.1-12.0); Hemoglobin 14.8 g/dL (12.2-16.2); Lymphocytes # 2.8 K/mm3 (0.7-4.5); Lymphocytes % 30.4 % (10-50); Mean Corpuscular HGB Conc 33.6 g/dL (31.8-35.4); Mean Corpuscular Hemoglobin 29.7 pg (27.0-31.2); Mean Corpuscular Volume 88.2 fl (81-99); Mean Platelet Volume 7.5 fl (7.4-10.4); Monocytes # 0.5 K/mm3 (0.1-1.0); Monocytes % 5.2 % (1.7-9.3); Neutrophils # 5.7 K/mm3 (1.8-7.8); Neutrophils % 62.9 % (37.0-80.0); Platelet Count 260 K/mm3 (142-424); Red Blood Count 4.98 M/mm3 (4.20-5.40); Red Cell Distribution Width 12.5 % (11.5-17.5); White Blood Count 9.1 K/mm3 (4.8-10.8)
[2020-08-29 06:56] LABS: Squamous Epithelial Cell,Urine Occasional #/hpf (0-5); WBC,Urine Occasional #/hpf (0-3)
[2020-08-29 06:57] LABS: Chloride 111 mmol/L (98-107); Potassium 3.6 mmoL/L (3.5-5.1); Sodium 139 mmol/L (136-145)
[2020-08-29 06:59] LABS: Blood Urea Nitrogen 10 mg/dl (7-17); Creatinine Clearance Estimated 183 mL/min (50-200); Estimated Glomerular Filt Rate 102 ml/min (>60); GFR (African American) 123 ML/MIN (>60)
[2020-08-29 07:00] LABS: Alanine Aminotransferase 16 U/L (12-78); Albumin Level 4.3 g/dl (3.5-5.0); Albumin/Globulin Ratio 1.3 (1.1-1.8); Alkaline Phosphatase 111 U/L (38-126); Anion Gap 11.6 mEq/L (5-15); Aspartate Amino Transferase 20 U/L (14-36); Bilirubin,Total 0.4 mg/dl (0.2-1.3); Calcium 9.4 mg/dl (8.4-10.2); Carbon Dioxide 20 mmol/L (22.0-30.0); Globulin 3.2 g/dL (1.3-3.2); Glucose 100 mg/dl (74-100); Lipase 90 U/L (23-300); Total Protein,Serum 7.5 g/dl (6.3-8.2)
--- NOTE | 2020-08-29 07:51 | US_ITS ---
PROCEDURE: US ABDOMEN LIMITED CLINICAL INDICATION: splenic lesion ?infarct vs hemangioma COMPARISON: US GB US GALLBLADDER (ABD LTD) from 02/18/2017 FINDINGS: Limited ultrasound performed of the abdomen with attention to the spleen. There is mild splenomegaly at [address] demonstrated in area of decreased attenuation within the anterior and inferior aspect of the spleen. No space-occupying lesion is evident at this area. CT findings may be due to a perfusion defect from differential perfusion or small splenic infarct. Images of the left kidney are unremarkable. IMPRESSION: No space-occupying lesion evident of the spleen. Abnormality noted on the CT scan may represent a differential perfusion defect or a small splenic infarction. Dictated by: Braydon Bishop MD 08/29/2020 10:07 Braydon Bishop MD in [place] 08/29/2020 10:07
--- NOTE | 2020-08-29 07:59 | PC.NURSE ---
Provider at bedside discussing care.
--- NOTE | 2020-08-29 08:03 | ECG_ITS ---
APPROVED REPORT Exam: Resting ECG HR:59 bpm ECG Measurements Heart Rate 59 AXES WV 176 P 40 QRSd 90 QRS 59 QT 420 T 50 QTc 415 Conclusion Sinus bradycardia Nonsignificant Q waves in inferior leads, late R-wave progression, unchanged from prior Abnormal ECG Electronically signed by : Jairo Aiken, 08/30/2020 17:21:58
--- NOTE | 2020-08-29 08:05 | PC.NURSE ---
Patient taken for ultrasound at this time.
[2020-08-29 08:34] LABS: Activated Partial Thrombo Time 21.4 seconds (23.6-34.0); INR 0.91 (0.9-1.1); Prothrombin Time 10.8 seconds (9.4-11.8)
--- NOTE | 2020-08-29 08:41 | PC.NURSE ---
Patient back from ultrasound at this time.
--- NOTE | 2020-08-29 08:58 | PC.NURSE ---
Echo at bedside.
== END 2020-08-29 10:18 | disposition still patient (30) ==
PROVIDERS: Emergency Provider Emergency Medicine; PCP Internal Medicine
DX: K59.00 Constipation, unspecified (principal); Q23.1 Congenital insufficiency of aortic valve
CPT/HCPCS: 74177; 76705; 80053; 81001; 81025; 83690; 85025; 85610; 85730; 93005; 93306; 96365; 99283; Q9967

== ENCOUNTER 2020-11-09 17:58 | Emergency (ER) | payer OTHER, BC, SELFPAY ==
--- NOTE | 2020-11-09 18:14 | XR_ITS ---
PROCEDURE INFORMATION: Exam: XR Right Hand Exam date and time: 11/09/20 06:14 PM Age: 25 years old Clinical indication: Hand; Right; Patient HX: Pain for 2 days with no known injury, pain around thumb TECHNIQUE: Imaging protocol: XR Right hand. Views: 3 or more views. COMPARISON: No relevant prior studies available. FINDINGS: Bones/joints: Normal. Soft tissues: Normal. IMPRESSION: No acute findings.
[2020-11-09 18:26] VITALS: BP 132/68; PULSE 62; RESP 17; TEMP 36.6; O2SAT 100; BMI 32.7
[2020-11-09 18:31] VITALS: BP 132/68; PULSE 62; RESP 17; TEMP 36.6; O2SAT 100
--- NOTE | 2020-11-09 18:44 | HMH.EDUTC ---
[facility] [place] Impression: Right hand pain, Tendonitis Disposition: Home, Self-Care Condition on Discharge: Good Instructions: DI for Hand Pain Additional Instructions: Rest your hand. Follow up with orthopedics (Dr. Moyer). I put in a referral, but you will need to call her office and make the appointment. Take the medication as directed. Follow up with your primary care doctor. GO TO THE ER FOR ANY WORSENING SYMPTOMS OR CONCERNS Prescriptions: predniSONE [Prednisone 20mg Tab] 20 mg PO BID 4 Days #8 tab Transmission Status: Received by [facility] #[id number] Referrals: Daryn Willingham [Primary Care Provider] - Shalonda Moyer MD [Physician] - Forms: Work/School Release Time of Disposition: 19:09 Medical Decision Making - Medical Records Medical records reviewed: No: I reviewed the patient's medical records. - Bautista Inquiry Pt receiving controlled substance: No Vital Signs: 11/09/20 18:26 11/09/20 18:31 Temperature 97.8 F 97.8 F Temperature Source Oral Pulse Rate 62 Pulse Rate [Left] 62 Respiratory Rate 17 17 Blood Pressure 132/68 Blood Pressure [Right Arm] 132/68 Blood Pressure Mean [Right Arm] 89 02 Sat by Pulse Oximetry 100 [facility] [place] - General Stated complaint: pain Right hand Time Seen by Provider: 11/09/20 18:44 Mode of Arrival: Ambulatory Source of Information: Patient Limitations: No Limitations Description of Symptoms (Recalled from Triage Doc. by RN): Right thumb pain HEENT Symptoms (Recalled from RN notes): No Resp Symptoms (Recalled from RN notes): No Skin Symptoms (Recalled from RN notes): No MS Symptoms (Recalled from RN notes): Yes Functional Status (Recalled from RN notes): wnl - History of Present Illness Provider Complaint: She c/o right hand pain for the past 3 days. She denies any injury. The pain is worse at the base of her thumb. She states that moving her thumb makes the pain worse. - Related Data Home Medications Medication Instructions Recorded Confirmed norethindrone ac-eth estradioL 1 each PO DAILY 04/04/20 08/29/20 [Loestrin 21 1-20 Tablet] Previous Rx's Medication Instructions Recorded predniSONE [Prednisone 20mg 20 mg PO BID 4 Days #8 tab 11/09/20 Tab] Allergies Allergy/AdvReac Type Severity Reaction Status Date / Time No Known Allergies Allergy Verified 11/09/20 18:30 - Worker's Comp Is this a Worker's Comp case?: No [facility] History - Hepatitis A Screen Drug use history?: No High risk sexual behaviors?: No History of sexually transmitted infection?: No Currently employed?: No Childcare worker?: No Do you have indoor plumbing?: Yes Do you have electricity?: Yes Attestation statement:: This patient has been screened for Hepatitis A risk factors. I have reviewed the patient's past medical history: Yes Medical History: Reports:: Migraine, Palpitations Denies:: Cancer, Diabetes Mellitus Type 1, Diabetes Mellitus Type 2, Internal Pacemaker, MRSA Other Surgeries: Yes: No Previous Surgery, Cardiac Surgery, Other. No: Pacemaker Amputation: No Comment: oral, gallbladder - Social History Smoking Status: Never smoker Alcohol Intake: never Alcohol Intake Frequency:: other Substance Use Type: denies use Occupational Status: other Housing: house Household Members: family Family Hx:: Hyperlipidemia, Hypertension ROS Obtained: Yes All systems reviewed & no additional complaints - Constitutional Constitutional: Denies chills, Denies fever(s) - Gastrointestinal Gastrointestingal: Reports: as per HPI Physical Exam - General General appearance: alert, in no apparent distress - Head Head exam: atraumatic, normocephalic, normal inspection - Eye Eye exam: Present: normal appearance, PERRL, EOMI - ENT ENT exam: Present: normal exam, normal oropharynx, mucous membranes moist, TM's normal bilaterally, normal external ear exam - Neck Neck exam: Present: normal in
== END 2020-11-09 19:25 | disposition home or self-care (01) ==
PROVIDERS: Emergency Provider Nurse Practitioner Family; PCP Internal Medicine
DX: M65.241 Calcific tendinitis, right hand (principal)
CPT/HCPCS: 29125; 73130; 99203; G0463

== ENCOUNTER 2020-11-23 14:43 | Emergency (ER) | payer OTHER, BC, SELFPAY ==
--- NOTE | 2020-11-23 14:53 | HMH.EDUTC ---
[facility] [place] Disposition Clinical Impression: Right ankle pain Qualifiers: Chronicity: acute Qualified Code(s): M25.571 - Pain in right ankle and joints of right foot Joint pain Qualifiers: Joint pain location: ankle Laterality: right Qualified Code(s): M25.571 - Pain in right ankle and joints of right foot Disposition: Home, Self-Care Condition on Discharge: Good Instructions: DI for Joint Pain Additional Instructions: Drink plenty of fluids. Take tylenol for pain or fever. Follow up with your regular doctor. GO TO THE ER FOR ANY WORSENING SYMPTOMS Prescriptions: Ibuprofen [Ibuprofen 600mg Tablet] 600 mg PO Q6HP PRN #30 tab PRN Reason: Mild Pain Transmission Status: Received by [facility] #[id number] Referrals: Daryn Willingham [Primary Care Provider] - Didier Cardoso MD [Staff Physician] - Forms: Work/School Release Time of Disposition: 17:03 Medical Decision Making - Medical Records Medical records reviewed: No: I reviewed the patient's medical records. - Bautista Inquiry Pt receiving controlled substance: No Vital Signs: 11/23/20 14:55 11/23/20 17:12 Temperature 98.0 F 98 F Temperature Source Oral Pulse Rate 87 Pulse Rate [Right Radial] 86 Respiratory Rate 16 16 Blood Pressure 128/80 Blood Pressure [Right Arm] 130/84 Blood Pressure Mean [Right Arm] 99 02 Sat by Pulse Oximetry 99 Oxygen Delivery Method Room Air - Lab Data Lab Results 11/23/20 15:18: WBC 9.6, RBC 4.92, Hgb 14.8, Hct 43.5, MCV 88.4, MCH 30.1, MCHC 34.1, RDW 12.6, Plt Count 289, MPV 7.7, Neut % (Auto) 70.9, Lymph % (Auto) 23.0, Ramsey % (Auto) 5.0, Eos % (Auto) 0.7, Baso % (Auto) 0.5, Neut # (Auto) 6.8, Lymph # (Auto) 2.2, Ramsey # (Auto) 0.5, Eos # (Auto) 0.1, Baso # (Auto) 0.0, ESR 22 H 11/23/20 15:18: Sodium 139, Potassium 3.7, Chloride 103, Carbon Dioxide 30, Anion Gap 9.7, BUN 7, Creatinine 0.60, Estimated Creat Clear 215, Estimated GFR 122, Est GFR ( Amer) 147, Glucose 87, Uric Acid 4.4, Calcium 9.1 Result diagrams: 11/23/20 15:18 11/23/20 15:18 [facility] [place] HPI - General Stated complaint: Rt ankle burning Time Seen by Provider: 11/23/20 14:54 - History of Present Illness Provider Complaint: She states that she has been having right ankle pain and burning for the past 2 days. She denies any known injury. She would like to have her uric acid level checked. She denies any known history of gout. - Related Data Home Medications Medication Instructions Recorded Confirmed norethindrone ac-eth estradioL 1 each PO DAILY 04/04/20 08/29/20 [Loestrin 21 1-20 Tablet] Previous Rx's Medication Instructions Recorded predniSONE [Prednisone 20mg 20 mg PO BID 4 Days #8 tab 11/09/20 Tab] Ibuprofen [Ibuprofen 600mg 600 mg PO Q6HP PRN #30 tab 11/23/20 Tablet] Allergies Allergy/AdvReac Type Severity Reaction Status Date / Time No Known Allergies Allergy Verified 11/23/20 14:57 [facility] History - Hepatitis A Screen Attestation statement:: This patient has been screened for Hepatitis A risk factors. I have reviewed the patient's past medical history: Yes Medical History: Reports:: Migraine, Palpitations Denies:: Cancer, Diabetes Mellitus Type 1, Diabetes Mellitus Type 2, Internal Pacemaker, MRSA Other Surgeries: Yes: No Previous Surgery, Cardiac Surgery, Other. No: Pacemaker Amputation: No Comment: oral, gallbladder - Social History Smoking Status: Never smoker Alcohol Intake: never Alcohol Intake Frequency:: other Substance Use Type: denies use Occupational Status: other Housing: house Household Members: family Family Hx:: Hyperlipidemia, Hypertension ROS Obtained: Yes All systems reviewed & no additional complaints - Constitutional Constitutional: Reports system reviewed and no additional complaints, except as docu, Denies chills, Denies fever(s) - Eyes Eyes: Reports system reviewed and no additional complaints, except as docu - ENT Ears, Nose, Mo
[2020-11-23 14:55] VITALS: BP 130/84; PULSE 86; RESP 16; TEMP 36.7; O2SAT 99; BMI 32.7
[2020-11-23 15:57] LABS: Basophils % 0.5 % (0.1-2.0); Eosinophils # 0.1 K/mm3 (0.0-0.4); Eosinophils % 0.7 % (0.1-12.0); Hematocrit 43.5 % (37.0-47.0); Hemoglobin 14.8 g/dL (12.2-16.2); Lymphocytes # 2.2 K/mm3 (0.7-4.5); Mean Corpuscular HGB Conc 34.1 g/dL (31.8-35.4); Mean Corpuscular Hemoglobin 30.1 pg (27.0-31.2); Mean Corpuscular Volume 88.4 fl (81-99); Mean Platelet Volume 7.7 fl (7.4-10.4); Monocytes # 0.5 K/mm3 (0.1-1.0); Neutrophils # 6.8 K/mm3 (1.8-7.8); Neutrophils % 70.9 % (37.0-80.0); Platelet Count 289 K/mm3 (142-424); Red Blood Count 4.92 M/mm3 (4.20-5.40); Red Cell Distribution Width 12.6 % (11.5-17.5); White Blood Count 9.6 K/mm3 (4.8-10.8)
[2020-11-23 16:04] LABS: Chloride 103 mmol/L (98-107); Potassium 3.7 mmoL/L (3.5-5.1); Sodium 139 mmol/L (136-145)
[2020-11-23 16:07] LABS: Blood Urea Nitrogen 7 mg/dl (7-17); Creatinine Clearance Estimated 215 mL/min (50-200); Estimated Glomerular Filt Rate 122 ml/min (>60); GFR (African American) 147 ML/MIN (>60)
[2020-11-23 16:08] LABS: Anion Gap 9.7 mEq/L (5-15); Calcium 9.1 mg/dl (8.4-10.2); Carbon Dioxide 30 mmol/L (22.0-30.0); Glucose 87 mg/dl (74-100)
[2020-11-23 16:43] LABS: Uric Acid 4.4 mg/dl (2.5-6.2)
[2020-11-23 17:02] LABS: Erythrocyte Sedimentation Rate 22 mm/hr (0-20)
[2020-11-23 17:12] VITALS: BP 128/80; PULSE 87; RESP 16; TEMP 36.6
== END 2020-11-23 17:16 | disposition home or self-care (01) ==
PROVIDERS: Emergency Provider Nurse Practitioner Family; PCP Internal Medicine
DX: M25.571 Pain in right ankle and joints of right foot (principal)
CPT/HCPCS: 80048; 84550; 85025; 85651; 99202; G0463

== ENCOUNTER 2021-05-14 18:07 | Emergency (ER) | payer OTHER, BC, SELFPAY ==
[2021-05-14 19:10] VITALS: BP 141/84; PULSE 79; RESP 18; TEMP 36.7; O2SAT 99; BMI 39.4
[2021-05-14 19:53] LABS: UTC Strep Screen (Rapid) Positive (Negative)
--- NOTE | 2021-05-14 19:59 | HMH.EDUTC ---
[facility] [place] Clinical Impression: Strep throat Disposition: Home, Self-Care Condition on Discharge: Good Instructions: DI for Strep Throat, Strep Throat, Cefdinir Additional Instructions: *Monitor Temp, Over the counter Motrin or Tylenol as directed/as needed Tylenol every 4 hours and Motrin every 6 hours (as long as your family doctor has told you that you can take it) for fever or pain. and straight to ER if unable to lower temp less than 101.0 after medication given *Warm salt water gargles may help to soothe the throat *Throat Lozenges *Warm fluids like tea with honey may help to soothe the throat *Sleep elevated *Humidifier/Vaporizer *If you did not take Penicillin shot or was unable to, start taking antibiotic immediately and make sure that you take it for the FULL length of time although you should start to feel better in 24-48 hours *change toothbrush and toothpaste 24-48 hours after starting to take antibiotics so you do not reinfect yourself Monitor Temp. Tylenol and/or Ibuprofen as needed. ER if fever is no less than 101 despite alternating Tylenol and Ibuprofen * Encourage fluids, water, Gatorade, powerade, pedialyte if infant/toddler/or child *Cold fluids, popsicles and ice cream may feel good on his throat Follow up IMMEDIATELY for new or worsening symptoms or no Noticeable improvement over the next 48-72 hours. 911 for difficulty breathing or swallowing Referrals: Daryn Willingham [Primary Care Provider] - As needed Forms: Work/School Release Time of Disposition: 20:06 Medical Decision Making - Bautista Inquiry Pt receiving controlled substance: No Bautista was queried for this patient: No Vital Signs: 05/14/21 19:10 Temperature 98.1 F Temperature Source Oral Pulse Rate [Right Brachial] 79 Respiratory Rate 18 Blood Pressure [Right Arm] 141/84 H Blood Pressure Mean [Right Arm] 103 Blood Pressure Source [Right Arm] Automatic Cuff Blood Pressure Position [Right Arm] Sitting 02 Sat by Pulse Oximetry 99 Oxygen Delivery Method Room Air - Lab Data Lab results reviewed: Yes: I reviewed the patient's lab results. Lab Results 05/14/21 19:32: Strep Scn Rapid Clinic Positive A [facility] [place] - General Stated complaint: sore throat Time Seen by Provider: 05/14/21 19:59 Mode of Arrival: Ambulatory Source of Information: Patient Limitations: No Limitations Description of Symptoms (Recalled from Triage Doc. by RN): PATIENT C/O SORE THROAT AND HEADACHE SINCE YESTERDAY HEENT Symptoms (Recalled from RN notes): Yes Resp Symptoms (Recalled from RN notes): No Skin Symptoms (Recalled from RN notes): No MS Symptoms (Recalled from RN notes): No Functional Status (Recalled from RN notes): WNL - History of Present Illness Provider Complaint: Patient states that she started having headache yesterday and sore throat States that it has continued to get worse so she came in today to get checked - Related Data Home Medications Medication Instructions Recorded Confirmed norethindrone ac-eth estradioL 1 each PO DAILY 04/04/20 08/29/20 [Loestrin 21 1-20 Tablet] Previous Rx's Medication Instructions Recorded predniSONE [Prednisone 20mg 20 mg PO BID 4 Days #8 tab 11/09/20 Tab] Ibuprofen [Ibuprofen 600mg 600 mg PO Q6HP PRN #30 tab 11/23/20 Tablet] Allergies Allergy/AdvReac Type Severity Reaction Status Date / Time No Known Allergies Allergy Verified 11/23/20 14:57 - Worker's Comp Is this a Worker's Comp case?: No [facility] History - Hepatitis A Screen Drug use history?: No High risk sexual behaviors?: No History of sexually transmitted infection?: No Currently employed?: No Childcare worker?: No Do you have indoor plumbing?: Yes Do you have electricity?: Yes Attestation statement:: This patient has been screened for Hepatitis A risk factors. I have reviewed the patient's past medical history: Yes Medical History: Reports:: Migraine, Palpitations Denies:: Cancer,
[2021-05-14 20:15] VITALS: BP 141/84; PULSE 79; RESP 18; TEMP 36.7; O2SAT 99
== END 2021-05-14 20:23 | disposition home or self-care (01) ==
PROVIDERS: Emergency Provider Nurse Practitioner; PCP Internal Medicine
DX: J02.0 Streptococcal pharyngitis (principal); R00.2 Palpitations
CPT/HCPCS: 87880; 99202; G0463

== ENCOUNTER → 2021-06-01 14:00 | Outpatient (CLI) | payer OTHER, BC, SELFPAY ==
[2021-06-02 08:16] LABS: HCG,Quantitative 13 mIU/ml (0-5.42)
== END ==
PROVIDERS: Visit Provider Obstetrics & Gynecology
DX: Z32.00 Encounter for pregnancy test, result unknown (principal)
CPT/HCPCS: 84702

== ENCOUNTER → 2021-07-04 11:16 | Outpatient (CLI) | payer OTHER, BC, SELFPAY ==
[2021-07-04 14:20] LABS: HCG,Quantitative < 2 mIU/ml (0-5.42)
[2021-07-06 10:12] LABS: Progesterone 0.3 ng/mL (.)
== END ==
PROVIDERS: Visit Provider Obstetrics & Gynecology
DX: N92.1 Excessive and frequent menstruation with irregular cycle (principal)
CPT/HCPCS: 84144; 84702

== ENCOUNTER 2021-09-01 14:26 | Emergency (ER) | payer OTHER, SELFPAY ==
[2021-09-01 14:40] VITALS: BP 125/79; PULSE 73; RESP 18; TEMP 36.9; O2SAT 100; BMI 36.6
[2021-09-01 14:53] LABS: Apearance,Urine Clear (Clear); Color,Urine Yellow (Yellow)
[2021-09-01 14:54] LABS: Bilirubin,Urine Negative (Negative); Blood, Urine Trace (Negative); Glucose,Urine (UA) Negative (Negative); Ketones,Urine Negative (Negative); Protein,Urine Negative (Negative); UTC Leukocyte Esterase,Urine Negative (Negative); UTC Nitrate,Urine Negative (Negative); Urobilinogen,Urine 0.2 EU/dl (0.2)
--- NOTE | 2021-09-01 15:23 | HMH.EDUTC ---
[facility] [place] Disposition Clinical Impression: Burning with urination Disposition: Home, Self-Care Condition on Discharge: Good Additional Instructions: Make sure to drink plenty of fluids FOllow up with OBGYN for further treatment and evaluation Return if needed Straight to ER if any life threatening symptoms Referrals: Daryn Willingham [Primary Care Provider] - As needed Time of Disposition: 15:29 Medical Decision Making - Bautitsa Inquiry Pt receiving controlled substance: No Bautista was queried for this patient: No Vital Signs: 09/01/21 14:40 Temperature 98.5 F Temperature Source Oral Pulse Rate [Right Brachial] 73 Respiratory Rate 18 Blood Pressure [Right Arm] 125/79 Blood Pressure Mean [Right Arm] 94 Blood Pressure Source [Right Arm] Automatic Cuff Blood Pressure Position [Right Arm] Sitting 02 Sat by Pulse Oximetry 100 Oxygen Delivery Method Room Air - Lab Data Lab results reviewed: Yes: I reviewed the patient's lab results. Lab Results 09/01/21 14:39: Urine Color Yellow, Urine Appearance Clear, Urine pH 7.0, Ur Specific Sayre 1.030, Urine Protein Negative, Urine Glucose (UA) Negative, Urine Ketones Negative, Urine Blood Trace, Urine Nitrate Negative, Urine Bilirubin Negative, Urine Urobilinogen 0.2, Ur Leukocyte Esterase Negative [facility] [place] HPI - General Stated complaint: possible uti Time Seen by Provider: 09/01/21 15:23 Mode of Arrival: Ambulatory Source of Information: Patient Limitations: No Limitations Description of Symptoms (Recalled from Triage Doc. by RN): PATIENT C/O LOWER BACK PAIN, BLADDER PRESSURE, AND BURNING WITH URINATION. RECENTLY TREATED A FEW WEEKS AGO FOR UTI HEENT Symptoms (Recalled from RN notes): No Resp Symptoms (Recalled from RN notes): No Skin Symptoms (Recalled from RN notes): No MS Symptoms (Recalled from RN notes): No Functional Status (Recalled from RN notes): WNL - History of Present Illness Provider Complaint: Patient state that she was recently treated for UTI States that she has had low back ache, burning with urination and feeling of pressure at times when she urinates States that she came in to get her urine checked to see if the medication cleared the infection due to she is 8 wks OB Denies abdominal pain denies fever - Related Data Home Medications Medication Instructions Recorded Confirmed norethindrone ac-eth estradioL 1 each PO DAILY 04/04/20 08/29/20 [Loestrin 21 1-20 Tablet] Previous Rx's Medication Instructions Recorded predniSONE [Prednisone 20mg 20 mg PO BID 4 Days #8 tab 11/09/20 Tab] Ibuprofen [Ibuprofen 600mg 600 mg PO Q6HP PRN #30 tab 11/23/20 Tablet] Cefdinir [Omnicef 300mg Capsule] 300 mg PO BID #20 cap 05/15/21 Allergies Allergy/AdvReac Type Severity Reaction Status Date / Time No Known Allergies Allergy Verified 11/23/20 14:57 - Worker's Comp Is this a Worker's Comp case?: No [facility] History - Hepatitis A Screen Drug use history?: No High risk sexual behaviors?: No History of sexually transmitted infection?: No Currently employed?: No Childcare worker?: No Do you have indoor plumbing?: Yes Do you have electricity?: Yes Attestation statement:: This patient has been screened for Hepatitis A risk factors. I have reviewed the patient's past medical history: Yes Medical History: Reports:: Migraine, Palpitations Denies:: Cancer, Diabetes Mellitus Type 1, Diabetes Mellitus Type 2, Internal Pacemaker, MRSA Other Surgeries: Yes: No Previous Surgery, Cardiac Surgery, Other. No: Pacemaker Amputation: No Comment: oral, gallbladder - Social History Smoking Status: Never smoker Alcohol Intake: never Alcohol Intake Frequency:: other Substance Use Type: denies use Occupational Status: other Housing: house Household Members: family Family Hx:: Hyperlipidemia, Hypertension ROS Obtained: Yes All systems reviewed & no additional complaints, Yes Systems reviewed as appropriate & no additional complaints
[2021-09-01 15:30] VITALS: BP 125/79; PULSE 73; RESP 18; TEMP 36.9; O2SAT 100
== END 2021-09-01 15:36 | disposition home or self-care (01) ==
PROVIDERS: Emergency Provider Nurse Practitioner; PCP Internal Medicine
DX: R30.0 Dysuria (principal); R39.15 Urgency of urination; M54.50 Low back pain, unspecified; I35.0 Nonrheumatic aortic (valve) stenosis; R01.1 Cardiac murmur, unspecified; G40.909 Epilepsy, unspecified, not intractable, without status epilepticus; Z79.1 Long term (current) use of non-steroidal anti-inflammatories (NSAID); Z79.52 Long term (current) use of systemic steroids; Z79.899 Other long term (current) drug therapy; Z87.440 Personal history of urinary (tract) infections; Z82.49 Family history of ischemic heart disease and other diseases of the circulatory system; Z83.438 Family history of other disorder of lipoprotein metabolism and other lipidemia
CPT/HCPCS: 81003; 99213; G0463

== ENCOUNTER 2022-02-09 08:09 | Emergency (ER) | payer OTHER, SELFPAY ==
[2022-02-09 08:39] VITALS: BP 135/80; PULSE 95; RESP 18; TEMP 36.7; O2SAT 97; BMI 38.3
[2022-02-09 08:44] LABS: Coronavirus 19, PCR Not Detected (NotDetected); Influenza A, PCR Not Detected (NotDetected); Influenza B, PCR Not Detected (NotDetected)
--- NOTE | 2022-02-09 08:47 | HMH.EDUTC ---
[facility] [place] Impression: Viral syndrome, Exposure to COVID-19 virus Disposition: Home, Self-Care Condition on Discharge: Good Instructions: DI for Viral Syndrome, DI for COVID-19 (Suspected or Confirmed ), Preventing the Spread of Coronavirus Discharge Instructions Additional Instructions: Drink plenty of fluids. Take tylenol for pain or fever. Return if you begin to have difficulty breathing. Follow up with your regular doctor. GO TO THE ER FOR ANY WORSENING SYMPTOMS Quarantine until you know the results of your covid-19 test. Notify your school or workplace of your results and follow their instructions regarding return to work/school. Prescriptions: Ondansetron [Zofran 4mg ODT] 4 mg PO Q8HP PRN #20 tab PRN Reason: Nausea Transmission Status: Received by [facility] Benzonatate [Benzonatate 100mg cap] 100 mg PO TIDP PRN #30 cap PRN Reason: Cough Transmission Status: Received by [facility] Referrals: Daryn Willingham [Primary Care Provider] - Forms: Work/School Release Time of Disposition: 09:02 Medical Decision Making - Medical Records Medical records reviewed: No: I reviewed the patient's medical records. - Bautista Inquiry Pt receiving controlled substance: No Vital Signs: 02/09/22 08:39 02/09/22 09:07 Temperature 98.0 F 98.0 F Temperature Source Oral Pulse Rate 95 H Pulse Rate [Left] 95 H Respiratory Rate 18 17 Blood Pressure 135/80 Blood Pressure [Right Arm] 135/80 Blood Pressure Mean [Right Arm] 98 02 Sat by Pulse Oximetry 97 - Lab Data Lab Results 02/09/22 08:30: SARS-CoV-2 (PCR) Not detected, Influenza A Untype (PCR) Not detected, Influenza Type B (PCR) Not detected [facility] [place] - General Stated complaint: Covid exposure Time Seen by Provider: 02/09/22 08:47 Mode of Arrival: Ambulatory Source of Information: Patient Limitations: No Limitations Description of Symptoms (Recalled from Triage Doc. by RN): patient comes in for covid test due to exposure to covid by . exposure occured 02/05 HEENT Symptoms (Recalled from RN notes): No Resp Symptoms (Recalled from RN notes): No Skin Symptoms (Recalled from RN notes): No MS Symptoms (Recalled from RN notes): No Functional Status (Recalled from RN notes): n/a - History of Present Illness Provider Complaint: She was exposed to covid-19 4 days ago. she has body aches and she states that she feels bad at this time. - Related Data Previous Rx's Medication Instructions Recorded Benzonatate [Benzonatate 100mg 100 mg PO TIDP PRN #30 cap 02/09/22 cap] Ondansetron [Zofran 4mg ODT] 4 mg PO Q8HP PRN #20 tab 02/09/22 Allergies Allergy/AdvReac Type Severity Reaction Status Date / Time No Known Allergies Allergy Verified 02/09/22 08:44 - Worker's Comp Is this a Worker's Comp case?: No [facility] History - Hepatitis A Screen Attestation statement:: This patient has been screened for Hepatitis A risk factors. I have reviewed the patient's past medical history: Yes Medical History: Reports:: Migraine, Palpitations Denies:: Cancer, Diabetes Mellitus Type 1, Diabetes Mellitus Type 2, Internal Pacemaker, MRSA Other Surgeries: Yes: No Previous Surgery, Cardiac Surgery, Other. No: Pacemaker Amputation: No Comment: oral, gallbladder - Social History Smoking Status: Never smoker Alcohol Intake: never Alcohol Intake Frequency:: other Substance Use Type: denies use Occupational Status: other Housing: house Household Members: family Family Hx:: Hyperlipidemia, Hypertension ROS Obtained: Yes All systems reviewed & no additional complaints - Constitutional Constitutional: Reports as per HPI - Eyes Eyes: Denies blurry vision, Denies eye discharge - ENT Ears, Nose, Mouth, and Throat: Reports as per HPI - Cardiovascular Cardiovascular: Denies chest pain - Respiratory Respiratory: Denies chest congestion, Reports cough Physical Exam - General
[2022-02-09 09:07] VITALS: BP 135/80; PULSE 95; RESP 17; TEMP 36.7
== END 2022-02-09 09:08 | disposition home or self-care (01) ==
PROVIDERS: Emergency Provider Nurse Practitioner Family; PCP Internal Medicine
DX: Z03.89 Encounter for observation for other suspected diseases and conditions ruled out (principal); R00.2 Palpitations; Z20.822 Contact with and (suspected) exposure to COVID-19; R01.1 Cardiac murmur, unspecified; M79.10 Myalgia, unspecified site; Q23.1 Congenital insufficiency of aortic valve; G43.909 Migraine, unspecified, not intractable, without status migrainosus; Z79.899 Other long term (current) drug therapy; Z82.49 Family history of ischemic heart disease and other diseases of the circulatory system; Z83.438 Family history of other disorder of lipoprotein metabolism and other lipidemia
CPT/HCPCS: 99213; C9803; G0463; U0003; U0005